=== PATIENT | female | born 1985 | race Hispanic/Latino ===

== ENCOUNTER 2017-10-19 12:41 | Emergency (ER) | payer BC ==
[~2017-10-19] VITALS: Ht 154.9 cm; Wt 59.0 kg
--- NOTE | 2017-10-19 13:41 | Diagnostic Imaging Report ---
PROCEDURE:X-RAY RIGHT LOWER LEG COMPARISON:None. INDICATIONS:RIGHT LOWER LEG SWELLING/PAIN FINDINGS: 2 views of the right lower leg (AP and lateral) There are no fractures, dislocations, lytic or blastic lesions. The bones are well-mineralized. The soft-tissues are unremarkable. CONCLUSION: Normal radiograph of the right lower leg. Dictated by: Talon Beltran M.D. on 10/19/2017 at 13:46 Electronically approved by: Talon Beltran M.D. on 10/19/2017 at 13:46
[2017-10-19 15:37] VITALS: BP 139/86
[2017-10-19] MEDS ORDERED: TETANUS/DIPHTHERIA TOX ADULT 0.5 ML SYR IM ONE (15:45)
== END 2017-10-19 15:52 | disposition home or self-care (01) ==
LOC: ER 12:41
DX: S80.811A Abrasion, right lower leg, initial encounter (principal); M79.89 Other specified soft tissue disorders; W21.89XA Striking against or struck by other sports equipment, initial encounter; Y92.39 Other specified sports and athletic area as the place of occurrence of the external cause
CPT/HCPCS: 90471; 90714; 93971; 99283

== ENCOUNTER 2018-10-21 18:54 | Emergency (ER) | payer BC ==
[~2018-10-21] VITALS: Ht 154.9 cm; Wt 59.0 kg
--- OUTSIDE RECORDS SUMMARY | 2018-10-21 18:57 | XMS REPORT | Summary of Care ---
Author Author MANDIE Zambrano, MEGGAN Organization Unknown Address Unknown Phone Unavailable Care Team Providers Care Parts Consultant Name Role Phone MANDIE Zambrano, MEGGAN Unavailable Unavailable Meggan Raygoza MD Unavailable Unavailable Unavailable Unavailable Functional Status Name Dates Details Functional status health issues are not documented Status: Name Dates Details Cognitive status health issues are not documented Status: Problems Name Dates Details Tremor, essential (333.1, G25.0) Status: Active Medications Name Dates Details Topiramate 50 MG Oral Tablet TAKE 1 TABLET Every twelve hours Quantity: 180 MANDIE Zambrano, MEGGAN Active Allergies and Adverse Reactions Name Dates Details No Known Drug Allergies (Allergy) Status: Active Procedures Procedure Dates Details [QLH] CERULOPLASMIN Date: 13-Dec-2017 [QH] COPPER, 24 HOUR URINE Date: 13-Dec-2017 [QLH] COPPER Date: 13-Dec-2017 Immunization Name Dates Details Immunizations not documented Social History Name Dates Details - Status: Name Dates Details Never smoker Vital Signs Date Test Result Details [id number] BP Systolic 117 mm[Hg] Status: Comments: Location: E; Position: Sitting BP Diastolic 77 mm[Hg] Status: Comments: Location: E; Position: Sitting Height 61 in Status: Weight 130 lb Status: Body Mass Index Calculated 24.56 kg/m2 Status: Body Surface Area Calculated 1.57 m2 Status: Temperature 99 f Status: Heart Rate 80 /min Status: Results Date Description Value Details :52 [QLH] CERULOPLASMIN CERULOPLASMIN 25 mg/dl (Normal) Range: 18-53 Comments: SPECIMEN RECEIVED DATE AND TIME: [id number] :52 [Q] COPPER (Acid Washed) Comments: REPORT COMMENT:FASTING:YESCOLLECTION KIT GIVEN TO PATIENT. PATIENT ADVISED TO RETURN. COPPER 125 {mcg/dl} Range: 70-175 Comments: This test was developed and its analytical performance characteristics have been determined by [facility]. It has not been cleared or approved by the USod and Drug Administration. This assay has been validated pursuant to the CLIA regulations and is used for clinical purposes.SPECIMEN RECEIVED DATE AND TIME: [id number] [id number]:29 [QH] COPPER, 24 HOUR URINE Comments: REPORT COMMENT:SPLIT 12/21/2017 FROM [id number] COPPER, 24 HOUR URINE 32 {mcg/24H} Range: 15-60 TOTAL VOLUME 2500 ml Comments: This test was developed and its analytical performance characteristics have been determined by [facility]. It has not been cleared or approved by the FDA. This assay has been validated pursuant to the CLIA regulations and is used for clinical purposes.SPECIMEN RECEIVED DATE AND TIME: [id number] Plan of Care Name Dates Details Planned Observations Planned Goals not documented Planned Encounters Appointment; MEGGAN LOCKWOOD M.D. On: 06-Jun-2018 15:00 Instructions Name Dates Details Instructions not documented Encounters Appointment; MEGGAN LOCKWOOD M.D. Encounter Diagnosis: Problem not documented On: 21-Feb-2016 11:00 Appointment; MEGGAN LOCKWOOD M.D. Encounter Diagnosis: Problem not documented On: 15-May-2016 10:30 Appointment; MEGGAN LOCKWOOD M.D. Encounter Diagnosis: Problem not documented On: 07-Sep-2016 14:30 Appointment; MEGGAN LOCKWOOD M.D. Encounter Diagnosis: Problem not documented On: 25-Sep-2016 14:30 Appointment; MEGGAN LOCKWOOD M.D. Encounter Diagnosis: Problem not documented On: 25-Jan-2017 15:30 Appointment; MEGGAN LOCKWOOD M.D. Encounter Diagnosis: Problem not documented On: 02-Aug-2017 14:00 Appointment; MEGGAN LOCKWOOD M.D. Encounter Diagnosis: Problem not documented On: 06-Dec-2017 14:30
--- OUTSIDE RECORDS SUMMARY | 2018-10-21 18:57 | XMS REPORT ---
[facility] Address Unknown Phone Unavailable Care Team Providers Care Cupola Operator Name Role Phone Huber ESTRADA Unavailable Unavailable Problems This patient has no known problems. Allergies, Adverse Reactions, Alerts This patient has no known allergies or adverse reactions. Medications This patient has no known medications. Results Test Description Test Time Test Comments Text Results Atomic Results Result Comments LOWER LEG RIGHT 2017-10-19 13:46:00 [place] [address] Patient Name: EASTON JUAREZ MR #: [id number] : 1985 Age/Sex: 32/F Req #: [id number] [facility] Physician: Ordered by: JUJU MONTES [employer] MIXER Report #: [id number] Location: ER Room/Bed: Procedure: [id number] DX/LOWER LEG RIGHT Exam Date: 10/19/17 Exam Time: 1315 REPORT STATUS: Signed PROCEDURE: X-RAY RIGHT LOWER LEG COMPARISON: None. INDICATIONS: RIGHT LOWER LEG SWELLING/PAIN FINDINGS: 2 views of the right lower leg (AP and lateral) There are no fractures, dislocations, lytic or blastic lesions. The bones are well-mineralized. The soft-tissues are unremarkable. CONCLUSION: Normal radiograph of the right lower leg. Dictated by: Darlene Beltran M.D. on 10/19/2017 at 13:46 Electronically approved by: Darlene Beltran M.D. on 10/19/2017 at 13:46 Dictated By: DARLENE BELTRAN MD [id number] Transcribed By: NAREN on 10/19/17 1346 COPY TO: JUJU MONTES NP
--- OUTSIDE RECORDS SUMMARY | 2018-10-21 18:57 | XMS REPORT | Clinical Summary ---
Author Author [facility] Address Unknown Phone Unavailable Care Team Providers Care Assistant Program Manager Name Role Phone Roshan Lawler MD PCP Allergies No Known Allergies Medications End Date Status Medication Sig Dispensed Refills Start Date Active topiramate (TOPAMAX) 50 TAKE ONE (1) 3 08/11/201 MG tablet TABLET(S) BY 8 MOUTH EVERY TWELVE HOURS. Active Problems Problem Noted Date Esophageal dysphagia 10/01/2017 Gastroesophageal reflux disease without esophagitis 10/01/2017 Family History Medical History Relation Name Comments Colon cancer Neg Hx Colon polyps Neg Hx Social History Date Tobacco Use Types Packs/Day Years Used Never Smoker Smokeless Tobacco: Never Used Alcohol Use Drinks/Week oz/Week Comments Yes occassional Sex Assigned at Date Recorded Not on file Industry Job Start Date Occupation Not on file Not on file Not on file Travel End Travel History Travel Start No recent travel history available. Last Filed Vital Signs Not on file Plan of Treatment Health Maintenance Due Date Last Done Comments INFLUENZA VACCINE 10/31/2018 Results Not on fileafter 10/20/2017 Insurance Type Payer Benefit Subscriber ID Effective Phone Address Plan / Dates Group PPO BCBS BCBS xxxxxxxxxxxx [id number] CHOICE resent PPO/[employer] EMPL PPO Advance Directives Patient has advance care planning documents on file. For more information, ana wilson contact: [address] [address]
--- OUTSIDE RECORDS SUMMARY | 2018-10-21 18:57 | XMS REPORT | Summary of Care ---
Author Author MEGGAN RAYGOZA M.D. Organization Unknown Address [facility] Phone Unavailable Care Team Providers Care President [place] Name Role Phone MEGGAN RAYGOZA M.D. Unavailable Unavailable Meggan Raygoza MD Unavailable Unavailable Unavailable Unavailable Functional Status Name Dates Details Functional status health issues are not documented Status: Name Dates Details Cognitive status health issues are not documented Status: Problems Name Dates Details Tremor, essential (333.1, G25.0) Status: Active Medications Name Dates Details Topiramate 50 MG Oral Tablet TAKE 1 TABLET Every twelve hours Quantity: 180 MEGGAN RAYGOZA M.D. Active Allergies and Adverse Reactions Name Dates Details No Known Drug Allergies (Allergy) Status: Active Procedures Procedure Dates Details Procedures not documented Immunization Name Dates Details Immunizations not documented Social History Name Dates Details - Status: Name Dates Details Never smoker Vital Signs Date Test Result Details [id number] BP Systolic 127 mm[Hg] Status: Comments: Location: LUE; Position: Sitting BP Diastolic 80 mm[Hg] Status: Comments: Location: LUE; Position: Sitting Height 61 in Status: Weight 139 lb Status: Body Mass Index Calculated 26.26 kg/m2 Status: Body Surface Area Calculated 1.62 m2 Status: Heart Rate 76 /min Status: Results Date Description Value Details Results not documented Plan of Care Name Dates Details Planned Observations Planned Goals not documented Planned Encounters Appointment; MEGGAN RAYGOZA M.D. On: 06-Dec-2017 14:30 Interventions Provided Medication Changes* Topiramate 50 MG Oral Tablet - Renew Instructions Name Dates Details Instructions not documented Encounters Appointment; MEGGAN RAYGOZA M.D. Encounter Diagnosis: Problem not documented On: 21-Feb-2016 11:00 Appointment; MEGGAN RAYGOZA M.D. Encounter Diagnosis: Problem not documented On: 15-May-2016 10:30 Appointment; MEGGAN RAYGOZA M.D. Encounter Diagnosis: Problem not documented On: 07-Sep-2016 14:30 Appointment; MEGGAN RAYGOZA M.D. Encounter Diagnosis: Problem not documented On: 25-Sep-2016 14:30 Appointment; MEGGAN RAYGOZA M.D. Encounter Diagnosis: Problem not documented On: 25-Jan-2017 15:30 Appointment; MEGGAN RAYGOZA M.D. Encounter Diagnosis: Problem not documented On: 02-Aug-2017 14:00
[2018-10-21] MEDS ORDERED: SODIUM CHLORIDE 0.9% 1000ML 1,000 ML ONE (20:36)
[2018-10-21] MEDS ORDERED: SODIUM CHLORIDE 0.9% 1000ML 1,000 ML IV SCH (20:45)
[2018-10-21 21:09] LABS: BASOPHILS # (AUTO) 0.1 (0.0-0.1); BASOPHILS % 0.8 % (0.0-1.0); EOSINOPHILS # (AUTO) 0.1 (0.0-0.4); EOSINOPHILS % 1.4 % (0.0-6.0); HEMATOCRIT 44.4 % (34.2-44.1); HEMOGLOBIN 15.2 g/dL (12.0-16.0); LYMPHOCYTES # (AUTO) 2.9 (1.0-3.2); LYMPHOCYTES % 39.3 % (18.0-39.1); MEAN CORPUSCULAR HEMOGLOBIN 31.3 pg (28-32); MEAN CORPUSCULAR HGB CONC 34.2 g/dL (31-35); MEAN CORPUSCULAR VOLUME 91.5 fL (81-99); MONOCYTES # (AUTO) 0.4 (0.2-0.8); MONOCYTES % 5.6 % (4.4-11.3); NEUTROPHILS # (AUTO) 3.9 (2.1-6.9); NEUTROPHILS % 52.6 % (38.7-80.0); PLATELET COUNT 250 x10e3/uL (140-360); RED BLOOD COUNT 4.85 x10e6/uL (3.6-5.1); RED CELL DISTRIBUTION WIDTH 13.2 % (11.7-14.4)
[2018-10-21 21:35] LABS: ALANINE AMINOTRANSFERASE 13 IU/L (0-55); ALBUMIN 4.7 g/dL (3.5-5.0); ALBUMIN/GLOBULIN RATIO 1.5 (0.8-2.0); ALKALINE PHOSPHATASE 77 IU/L (40-150); ANION GAP 15.5 mmol/L (8-16); BLOOD UREA NITROGEN 15 mg/dL (7-26); BUN/CREATININE RATIO 18 (6-25); CALCIUM 9.8 mg/dL (8.4-10.2); CARBON DIOXIDE 22 mmol/L (22-29); CHLORIDE 107 mmol/L (98-107); CREATININE, SERUM 0.85 mg/dL (0.57-1.11); EST GLOMERULAR FILTRATION RATE > 60 ML/MIN (60-); GLUCOSE 80 mg/dL (74-118); POTASSIUM 3.5 mmol/L (3.5-5.1); SODIUM 141 mmol/L (136-145)
[2018-10-21] MEDS ORDERED: MECLIZINE HCL12.5 MG PO (21:49)
[2018-10-21 23:38] VITALS: BP 126/87
== END 2018-10-21 20:54 | disposition home or self-care (01) ==
LOC: ER 18:54
DX: R42 Dizziness and giddiness (principal)
CPT/HCPCS: 36415; 80053; 85025; 99283; J7030